=== PATIENT | female | born 2000 | race African-American/Black ===

== ENCOUNTER 2018-01-06 00:24 | Emergency (ER) | payer MEDICAID ==
[2018-01-06] MEDS ORDERED: NORMAL SALINE 1000 ML 1,000 ML IV ONE (03:55)
[2018-01-06] MEDS ORDERED: KETOROLAC TROMETHAMINE INJ/PF 30 MG/1 ML SDV IV ONE (03:55)
--- NOTE | 2018-01-06 03:56 | ER Document Report ---
ED General - General Chief Complaint: Vaginal Bleeding Stated Complaint: VAGINAL CRAMPING/BLEEDING Time Seen by Provider: 01/06/18 03:45 Notes: Patient is a 17-year-old female that comes emergency department for chief complaint of heavy vaginal bleeding over the past 3 days with passage of clots and questionable passage of tissue. She states that she was 5 days late on her menstrual cycle, wonders if she miscarried. She reports intermittent cramps but denies severe pain, denies fever chills, nausea or vomiting. She states that when she stands up she feels a little bit lightheaded, denies dizziness or passing out. She is to be on Depo-Provera, currently takes no form of contraception, denies any daily medications, denies any surgeries or medical history otherwise. TRAVEL OUTSIDE OF THE [place] IN LAST 30 DAYS: No - Related Data Allergies/Adverse Reactions: No Known Allergies Allergy (Unverified 01/06/18 00:33) Past Medical History - General Information source: Patient - Social History Smoking Status: Never Smoker Frequency of alcohol use: None Drug Abuse: None Lives with: Family Family History: Reviewed & Not Pertinent - Medical History Medical History: Negative Surgical Hx: Negative - Immunizations Immunizations up to date: Yes Hx Diphtheria, Pertussis, Tetanus Vaccination: Yes Review of Systems - Review of Systems Constitutional: No symptoms reported EENT: No symptoms reported Cardiovascular: No symptoms reported Respiratory: No symptoms reported Gastrointestinal: See HPI Genitourinary: See HPI Female Genitourinary: See HPI Musculoskeletal: No symptoms reported Skin: No symptoms reported Hematologic/Lymphatic: No symptoms reported Neurological/Psychological: No symptoms reported Physical Exam - Vital signs Vitals: Temp Pulse Resp BP Pulse Ox 98.4 F 74 18 119/62 97 01/06/18 00:33 01/06/18 00:33 01/06/18 00:33 01/06/18 00:33 01/06/18 00:33 - Notes Notes: GENERAL: Alert, interacts well. No acute distress. HEAD: Normocephalic, atraumatic. EYES: Pupils equal, round, and reactive to light. Extraocular movements intact. ENT: Oral mucosa moist, tongue midline. NECK: Full range of motion. Supple. Trachea midline. LUNGS: Clear to auscultation bilaterally, no wheezes, rales, or rhonchi. No respiratory distress. HEART: Regular rate and rhythm. No murmur ABDOMEN: Soft, non-tender. Non-distended. Bowel sounds present in all 4 quadrants. EXTREMITIES: Moves all 4 extremities spontaneously. No edema, normal radial and dorsalis pedis pulses bilaterally. No cyanosis. BACK: no cervical, thoracic, lumbar midline tenderness. No saddle anesthesia, normal distal neurovascular exam. NEUROLOGICAL: Alert and oriented x3. Normal speech. [cranial nerves II through XII grossly intact]. PSYCH: Normal affect, normal mood. SKIN: Warm, dry, normal turgor. No rashes or lesions noted. Course - Re-evaluation Re-evalutation: CBC unremarkable, hCG is negative, urine shows some elevated specific gravity. Patient given IV fluids and Toradol. Smiling and well-appearing on repeat examination. Soft nontender abdomen on my examination. Discussed results. Patient states relief about ECG, declines pelvic examination or ultrasound. I feel this is appropriate, appears to be dysmenorrhea with no evidence of acute abdomen or pelvic pathology based on her exam and workup. Discussed recommendations, medications, follow-up, return precautions, patient states understanding and agreement. - Vital Signs Vital signs: Temp Pulse Resp BP Pulse Ox 98.4 F 74 18 108/67 99 01/06/18 00:33 01/06/18 00:33 01/06/18 00:33 01/06/18 06:58 01/06/18 06:55 - Laboratory Result Diagrams: 01/06/18 04:45 01/06/18 04:45 Laboratory results interpreted by me: 01/06/18 01/06/18 04:45 04:45 Seg Neutrophils % 36.9 L Lymphocytes % 50.8 H Urine Protein 30 H Urine Blood LARGE H Urine Urobilinogen 4.0 H Discharge - Discharge Clinical Impression: Dysmenorrhea Condition: Stable Disposition: HOME, SELF-CARE Additional Instructions: Your test is negative. Your workup shows some dehydration but no other concerning a normality's. Continue rehydration. Your irregular cycle because is not certain, probably hormonal. Follow-up with [facility] for additional evaluation and management. Take nausea medication if needed, take provided pain/cramping medication if needed. Follow-up with primary care. Return to the emergency department for any concerning or worsening symptoms including very heavy bleeding, passing out, fever, or any other concerning symptoms. Prescriptions: Ketorolac Tromethamine [Toradol 10 mg Tablet] 10 mg PO Q8HP PRN #24 tablet PRN Reason: Promethazine HCl [Phenergan 25 mg Tablet] 1 - 2 tab PO Q6H PRN #15 tablet PRN Reason:
[2018-01-06 04:57] LABS: ABSOLUTE EOSINOPHILS # (AUTO) 0.2 10^3/uL (0.0-0.6); ABSOLUTE LYMPHOCYTES (AUTO) 2.8 10^3/uL (0.5-4.7); ABSOLUTE MONOCYTES (AUTO) 0.5 10^3/uL (0.1-1.4); ABSOLUTE NEUT (AUTO) 2.1 10^3/uL (1.7-8.2); BASOPHILS % (AUTO) 0.7 % (0-2); EOSINOPHILS % (AUTO) 3.3 % (0-6); HEMATOCRIT 37.3 % (36.0-47.0); HEMOGLOBIN 12.5 g/dL (12.0-15.5); LYMPHOCYTES % (AUTO) 50.8 % (13-45); MEAN CORPUSCULAR HEMOGLOBIN 31.1 pg (27.0-33.4); MEAN CORPUSCULAR HGB CONC 33.5 g/dL (32.0-36.0); MEAN CORPUSCULAR VOLUME 93 fl (80-97); MONOCYTES % (AUTO) 8.3 % (3-13); PLATELET COUNT 307 10^3/uL (150-450); RED BLOOD COUNT 4.02 10^6/uL (3.72-5.28); RED CELL DISTRIBUTION WIDTH 13.8 % (11.5-14.0); SEGMENTED NEUTROPHILS % (AUTO) 36.9 % (42-78); TOTAL CELLS COUNTED % (AUTO) 100 %; WHITE BLOOD COUNT 5.6 10^3/uL (4.0-10.5)
[2018-01-06 05:09] LABS: APPEARANCE,URINE SLIGHTLY-CLOUDY; BILIRUBIN,URINE NEGATIVE (NEGATIVE); COLOR,URINE YELLOW; GLUCOSE, URINE NEGATIVE (NEGATIVE); KETONES,URINE NEGATIVE (NEGATIVE); LEUKOCYTE ESTERASE,URINE NEGATIVE (NEGATIVE); NITRITE,URINE NEGATIVE (NEGATIVE); PROTEIN,URINE 30 mg/dL (NEGATIVE); URINE SPECIFIC GRAVITY 1.027
[2018-01-06 05:12] LABS: ANION GAP 14 (5-19); BLOOD UREA NITROGEN 12 mg/dL (7-20); CALCIUM 9.7 mg/dL (8.4-10.2); CARBON DIOXIDE 24 mmol/L (22-30); CHLORIDE 105 mmol/L (98-107); GLUCOSE 100 mg/dL (75-110); POTASSIUM 3.6 mmol/L (3.6-5.0); SODIUM 143.1 mmol/L (137-145)
[2018-01-06 07:04] VITALS: BP 108/67
== END 2018-01-06 07:04 | disposition home or self-care (01) ==
LOC: ER 00:24
DX: N94.6 Dysmenorrhea, unspecified (principal); R42 Dizziness and giddiness
CPT/HCPCS: 99284; 96361; 96374; 36415; 84703; 85025; 80048; 81001; J1885; J7030